=== PATIENT | male | born 1990 | race Caucasian/White ===

== ENCOUNTER 2019-12-22 05:56 | Emergency (ER) | payer SELFPAY ==
[~2019-12-22] VITALS: Ht 177.8 cm; Wt 86.2 kg
[2019-12-22 07:30] VITALS: BP 125/91
== END 2019-12-22 08:14 | disposition home or self-care (01) ==
LOC: EDBD 05:56 → ER 05:56
DX: F41.9 Anxiety disorder, unspecified (principal); F12.10 Cannabis abuse, uncomplicated